=== PATIENT | male | born 1950 | race Caucasian/White ===

== ENCOUNTER 2018-04-08 13:52 | Emergency (ER) | payer MEDICARE, MEDICAID ==
[~2018-04-08] VITALS: Ht 167.6 cm; Wt 80.0 kg
[~2018-04-08 13:52] MED LIST: ACET325T14 PO; AMLO10TA6 PO; AMLO5TAB4 PO; ASCO500T8 PO; ASPI81TA50 PO; BISA10SU54 PR; CALC667C PO; CALC667C3 PO; CHOL200024 PO; CLON0.1T PO; DEXT38GE2 PO; DIAZ2TAB3 PO; DIVA250T PO; ERGO500017 PO; ERTA1VIA IV; FERR325T17 PO; FOLI0.8T3 PO; GLUC1VIA4 IM; HEPA50002 SQ; HYDR-3237 PO; HYDR-3341 PO; INSU100C SQ-INSULIN; INSU100C5 SQ; INSU100V8 SQ; LANT1000 PO; LIDO5CRE14 TD; LINE600T37 PO; LISI40TA PO; MAGN2400 PO; METO25TA2 PO; MINE3.5O EACHEYE; MINE3.5O OP; NA P133E2 RC; NALO0.4D2 IM; NEPRO; POLY17PO5 PO; POTA20TA6 PO; SULF1TAB24 PO; TRAM50TA2 PO; VALP250C59 PO; VALS40TA2 PO; VANC1VIA3 PO; VANC500F2 IVPB; VITA1TAB19 PO
[2018-04-08 14:27] LABS: BASOPHILS # (AUTO) 0.02 x10^3/uL (0-0.1); BASOPHILS % (AUTO) 0 % (0-1); EOSINOPHILS # (AUTO) 0.06 x10^3/uL (0-0.4); EOSINOPHILS % (AUTO) 1 % (1-7); LYMPHOCYTES # (AUTO) 0.76 x10^3/uL (1-3.4); LYMPHOCYTES % (AUTO) 14 % (22-44); MD NO; MEAN CORPUSCULAR HEMOGLOBIN 32.8 pg (27.5-34.5); MEAN CORPUSCULAR HGB CONC 32.7 g/dL (33.2-36.2); MEAN CORPUSCULAR VOLUME 100.3 fL (81-97); MONOCYTES % (AUTO) 7 % (2-9); NEUTROPHILS # (AUTO) 4.24 x10^3/uL (1.8-6.8); NEUTROPHILS % (AUTO) 77 % (42-75); PLATELET COUNT 135 x10^3/uL (130-400); RED BLOOD COUNT 3.89 x10^6/uL (4.38-5.82); RED CELL DISTRIBUTION WIDTH 16.1 % (9.4-14.8)
[2018-04-08 14:35] LABS: ALBUMIN 2.6 g/dL (3.4-5.0); ANION GAP 8 mmol/L (5-15); CALCIUM 8.5 mg/dL (8.5-10.1); CHLORIDE 99 mmol/L (98-107); CREATININE 4.13 mg/dL (0.7-1.3); INTERNATIONAL NORMALIZED RATIO 1.09 (0.93-1.1); PROTHROMBIN TIME 11.3 Seconds (9.6-11.5)
[2018-04-08] MEDS ORDERED: BACITRACIN ZINC OINT 500U/GM, 0.9 GM ONE (14:44)
[2018-04-08 17:31] VITALS: BP 166/53
== END 2018-04-08 17:35 | disposition home or self-care (01) ==
LOC: ED 16:30
DX: R04.0 Epistaxis (principal); I50.9 Heart failure, unspecified; I11.0 Hypertensive heart disease with heart failure; E11.65 Type 2 diabetes mellitus with hyperglycemia; E11.21 Type 2 diabetes mellitus with diabetic nephropathy; Z87.891 Personal history of nicotine dependence; Z88.5 Allergy status to narcotic agent
CPT/HCPCS: 30901; 36415; 80048; 82040; 85025; 85610; 85730; 99284

== ENCOUNTER 2018-12-19 13:11 | Emergency (ER) | payer MEDICARE, MEDICAID ==
[~2018-12-19] VITALS: Ht 165.1 cm; Wt 80.0 kg
[~2018-12-19 13:11] MED LIST changes: -AMLO10TA6 PO; +AMLO10TA8 PO; -CLON0.1T PO; +CLON0.1T22 PO; +LINE600T2 PO; -LINE600T37 PO
--- NOTE | 2018-12-19 13:18 | NUR ---
68 Y/O MALE BIB AMBULANCE WITH C/O WEAKNESS. PER REPORT PT HAD DIALYSIS THIS MORNING. UPON ARRIVAL TO DIALYSIS, PT BP WAS 100/70. PT WAS GIVEN 130mL NS PRIOR TO DIALYSIS TX. DIALYSIS REMOVED 815mL. PT BP WAS 70/50 AFTER TREATMENT. PT WAS GIVEN 450 NS BY [facility] [employer]. PT ARRIVES WITH PIV ESTABLISHED QUALITY SYSTEM MANAGER. PT ALSO GIVEN 100 mL NS PRIOR TO ARRIVAL BY EMS. NO C/O CP, SYNCOPE,N/V/D, TRAUMA. PT PLACED ON CONT PULSE OX,NIBP.
[2018-12-19] MEDS ORDERED: SODIUM CHLORIDE FLUSH 10ML SYR IVF ONE (13:30)
[2018-12-19 13:43] LABS: MEAN CORPUSCULAR HEMOGLOBIN 36.2 pg (27.5-34.5); MEAN CORPUSCULAR HGB CONC 32.5 g/dL (33.2-36.2); MEAN CORPUSCULAR VOLUME 111.4 fL (81-97); PLATELET COUNT 186 x10^3/uL (130-400); RED BLOOD COUNT 2.85 x10^6/uL (4.38-5.82); RED CELL DISTRIBUTION WIDTH 14.5 % (9.4-14.8)
--- NOTE | 2018-12-19 13:51 | NUR ---
PT RESTING ON GURNEY. NO ACUTE DISTRESS NOTED. PT HAS TV ON FOR SOUND.NO NEEDS REQUESTED AT THIS TIME.
[2018-12-19 13:54] LABS: ALANINE AMINOTRANSFERASE 47 U/L (12-78); ALBUMIN 2.9 g/dL (3.4-5.0); ANION GAP 10 mmol/L (5-15); CALCIUM 9.3 mg/dL (8.5-10.1); CHLORIDE 98 mmol/L (98-107); CREATININE 4.65 mg/dL (0.7-1.3)
[2018-12-19 13:58] LABS: ALKALINE PHOSPHATASE 349 U/L (45-117); BILIRUBIN,TOTAL 0.3 mg/dL (0.2-1.0); TOTAL PROTEIN 7.3 g/dL (6.4-8.2)
[2018-12-19 14:11] LABS: BASOPHILS # (AUTO) 0.01 x10^3/uL (0-0.1); BASOPHILS % (AUTO) 0 % (0-1); EOSINOPHILS # (AUTO) 0.12 x10^3/uL (0-0.4); EOSINOPHILS % (AUTO) 2 % (1-7); LYMPHOCYTES % (AUTO) 14 % (22-44); MD SCAN; MONOCYTES # (AUTO) 0.35 x10^3/uL (0.2-0.8); MONOCYTES % (AUTO) 5 % (2-9); NEUTROPHILS # (AUTO) 5.49 x10^3/uL (1.8-6.8); NEUTROPHILS % (AUTO) 79 % (42-75)
--- NOTE | 2018-12-19 14:47 | NUR ---
PT RESTING ON GURNEY. PT LISTENING TO TV. PT CALLING COUSIN. NO ACUTE DISTRESS NOTED. VSS.
[2018-12-19 14:48] VITALS: BP 103/42
--- NOTE | 2018-12-19 14:58 | NUR ---
SPOKE WITH MARIANO AT [facility]. PT TO BE PICKED UP BETWEEN [phone],
--- NOTE | 2018-12-19 15:32 | NUR ---
Patient/Caregiver given discharge instructions and they have confirmed that they understand the instructions. Patient ambulatory with steady gait TO WHEELCHAIR. PT WAS PICKED UP BY [facility]. PT LEFT WITH ALL PERSONAL BELONGINGS. PT VERBALIZED UNDERSTANDING POC AND DISCHARGE. PIV D/C WITH TIP INTACT. PRESSURE DRESSING APPLIED.
[2018-12-27] MEDS ORDERED: HYDR-3341 PO (16:43)
[2018-12-27] MEDS ORDERED: AMOX1TAB61 PO (17:00)
[2018-12-31] MEDS ORDERED: ONDA4TAB7 PO (14:39)
[2018-12-31] MEDS ORDERED: HYDR-36 PO (14:39)
[2018-12-31] MEDS ORDERED: LOSA25TA25 PO (14:39)
[2018-12-31] MEDS ORDERED: MAGN400T7 PO (14:39)
[2018-12-31] MEDS ORDERED: BISA10SU50 PR (14:39)
[2018-12-31] MEDS ORDERED: INSU100I28 SQ-INSULIN (14:39)
[2018-12-31] MEDS ORDERED: LACT10SO28 PO (14:39)
[2018-12-31] MEDS ORDERED: INSU100C5 SQ-INSULIN (14:39)
[2018-12-31] MEDS ORDERED: ACET650S12 PR (14:39)
== END 2018-12-19 15:35 | disposition home or self-care (01) ==
LOC: ED 13:42
DX: R55 Syncope and collapse (principal); R42 Dizziness and giddiness; E11.22 Type 2 diabetes mellitus with diabetic chronic kidney disease; I13.2 Hypertensive heart and chronic kidney disease with heart failure and with stage 5 chronic kidney disease, or end stage renal disease; N18.6 End stage renal disease; D63.1 Anemia in chronic kidney disease; I50.9 Heart failure, unspecified; I25.10 Atherosclerotic heart disease of native coronary artery without angina pectoris; F41.9 Anxiety disorder, unspecified; Z87.891 Personal history of nicotine dependence; Z88.2 Allergy status to sulfonamides
CPT/HCPCS: 36415; 71045; 80053; 83735; 84100; 84484; 85025; 93005; 99284